=== PATIENT | female | born 1980 | race Caucasian/White ===

== ENCOUNTER 2016-12-27 19:01 | Emergency (ER) | payer OTHER ==
[~2016-12-27] VITALS: Ht 177.8 cm; Wt 100.0 kg
[~2016-12-27 19:01] MED LIST: ALEVE220 MG OR; FLEXERIL OR; LORTAB 5 OR; NAPROSYN500 MG OR; NO HOME MEDS; TORADOL OR; TRAMADOL HCL50 MG OR
[2016-12-27 19:46] LABS: HEMATOCRIT 31.6 % (37.0-47.0); HEMOGLOBIN 9.9 g/dl (12.0-16.0); IMMATURE GRANULOCYTES 0.8 % (0.0-1.0); MEAN CELL VOLUME 79.6 fL CALC (80.0-100.0); MEAN CORPUSCULAR HGB 24.9 pG CALC (26.0-32.0); MEAN CORPUSCULAR HGB CONC 31.3 g/L CALC (32.0-36.0); NEUT# 8.31 thou/uL (2.00-7.15); RED BLOOD COUNT 3.97 mill/uL (4.20-5.60); RED CELL DISTRI WIDTH 15.8 % (11.5-15.5)
[2016-12-27 19:49] LABS: URINE BILIRUBIN - DIPSTICK NEGATIVE (NEGATIVE); URINE BLOOD DIPSTICK NEGATIVE (NEGATIVE); URINE CLARITY CLEAR; URINE COLOR YELLOW; URINE GLUCOSE - DIPSTICK NEGATIVE (NEGATIVE); URINE KETONE NEGATIVE (NEGATIVE); URINE LEUK ESTERASE NEGATIVE (NEGATIVE); URINE NITRITE - DIPSTICK NEGATIVE (Negative); URINE PROTEIN - DIPSTICK NEGATIVE (NEG-TRACE); URINE SPECIFIC GRAVITY 1.025; URINE UROBILINOGEN - DIPSTICK 0.2 E.U./dL (0.2)
[2016-12-27 19:57] LABS: ALBUMIN 3.9 g/dL (3.2-5.0); ALKALINE PHOSPHATASE 91 u/l (38-126); AMYLASE 49 u/l (30-110); ANION GAP 17 (6-22 (CALC)); BILIRUBIN, TOTAL 0.4 mg/dL (0.0-1.4); BUN 21 mg/dL (7-17); BUN/CREATININE RATIO 28 (12-20 (CALC)); CALCIUM 9.5 mg/dL (8.4-10.2); CARBON DIOXIDE 24 mmol/l (22-30); CHLORIDE 103 mmol/l (95-108); CREATININE 0.8 mg/dL (0.5-1.0); GFR > 60 ML/MIN (>=60 (CALC)); GFR FOR AFR.AMER. > 60 ML/MIN (>=60 (CALC)); GLUCOSE 106 mg/dL (65-105); LIPASE 194 u/l (23-300); POTASSIUM 4.3 mmol/l (3.5-5.1); SGOT/AST 20 u/l (14-36); SGPT/ALT 28 u/l (9-52); SODIUM 139 mmol/l (137-146); TOTAL PROTEIN 6.9 g/dL (6.3-8.2)
[2016-12-27] MEDS ORDERED: CIPROFLOXACN500 MG PO (21:31)
[2016-12-27] MEDS ORDERED: ULTRAM50 M1 PO (21:31)
[2016-12-27 21:40] VITALS: BP 165/98
== END 2016-12-27 21:56 | disposition home or self-care (01) | DRG 392 ==
LOC: ED 19:01
PROVIDERS: Emergency Medicine
DX: R10.31 Right lower quadrant pain (principal); N83.201 Unspecified ovarian cyst, right side; R11.2 Nausea with vomiting, unspecified; R30.0 Dysuria; R35.0 Frequency of micturition

== ENCOUNTER 2017-08-23 16:55 | Emergency (ER) | payer OTHER ==
[~2017-08-23] VITALS: Ht 177.8 cm; Wt 109.1 kg
[~2017-08-23 16:55] MED LIST changes: +CIPROFLOXACN500 MG PO; +ULTRAM50 M1 PO
[2017-08-23 17:30] LABS: HEMATOCRIT 32.5 % (37.0-47.0); IMMATURE GRANULOCYTES 0.5 % (0.0-1.0); MEAN CORPUSCULAR HGB 22.8 pG CALC (26.0-32.0); MEAN CORPUSCULAR HGB CONC 30.8 g/L CALC (32.0-36.0); NEUT# 9.9 thou/uL (2.00-7.15); RED BLOOD COUNT 4.39 mill/uL (4.20-5.60); RED CELL DISTRI WIDTH 15.8 % (11.5-15.5)
[2017-08-23 17:47] LABS: ALKALINE PHOSPHATASE 87 u/l (38-126); ANION GAP 18 (6-22 (CALC)); BILIRUBIN, TOTAL 0.3 mg/dL (0.0-1.4); BUN 13 mg/dL (7-17); BUN/CREATININE RATIO 19 (12-20 (CALC)); CARBON DIOXIDE 21 mmol/l (22-30); CHLORIDE 105 mmol/l (95-108); CREATININE 0.7 mg/dL (0.5-1.0); GFR > 60 ML/MIN (>=60 (CALC)); GFR FOR AFR.AMER. > 60 ML/MIN (>=60 (CALC)); LIPASE 127 u/l (23-300); POTASSIUM 3.8 mmol/l (3.5-5.1); SGOT/AST 19 u/l (14-36); SGPT/ALT 41 u/l (9-52); SODIUM 141 mmol/l (137-146); TOTAL PROTEIN 7.6 g/dL (6.3-8.2)
[2017-08-23] MEDS ORDERED: IMODIUM2 MG PO (17:50)
[2017-08-23] MEDS ORDERED: ZOFRAN ODT4 MG PO (17:50)
[2017-08-23 18:30] VITALS: BP 161/95
== END 2017-08-23 18:41 | disposition home or self-care (01) | DRG 392 ==
LOC: ED 16:55
PROVIDERS: Emergency Medicine
DX: K52.9 Noninfective gastroenteritis and colitis, unspecified (principal); F17.210 Nicotine dependence, cigarettes, uncomplicated; R11.2 Nausea with vomiting, unspecified; R19.7 Diarrhea, unspecified

== ENCOUNTER 2017-12-10 18:22 | Emergency (ER) | payer OTHER ==
[~2017-12-10] VITALS: Ht 177.8 cm; Wt 109.4 kg
[~2017-12-10 18:22] MED LIST changes: +IMODIUM2 MG PO; +ZOFRAN ODT4 MG PO
[2017-12-10 18:48] LABS: URINE BLOOD DIPSTICK NEGATIVE (NEGATIVE); URINE COLOR ORANGE; URINE GLUCOSE - DIPSTICK 100 mg/dL (NEGATIVE); URINE KETONE TRACE mg/dL (NEGATIVE); URINE LEUK ESTERASE TRACE (NEGATIVE); URINE PH 5.5 (4.5-8.0); URINE PROTEIN - DIPSTICK >=300 mg/dL (NEG-TRACE); URINE SPECIFIC GRAVITY 1.025
[2017-12-10 18:51] LABS: URINE BILIRUBIN - DIPSTICK NEGATIVE (NEGATIVE); URINE CLARITY CLOUDY; URINE NITRITE - DIPSTICK POSITIVE (Negative)
[2017-12-10 18:54] LABS: URINE SQUAMOUS EPITHELIAL CELL MODERATE EPI/hpf (0-FEW)
[2017-12-10 18:55] LABS: URINE MUCUS FEW hpf (NONE-FEW)
[2017-12-10 18:56] LABS: URINE FINE GRAN CAST MANY lpf
[2017-12-10 19:02] VITALS: BP 147/84
[2017-12-10] MEDS ORDERED: CIPROFLOXACN500 MG PO (19:03)
== END 2017-12-10 19:05 | disposition home or self-care (01) ==
LOC: ED 18:22
PROVIDERS: Family Medicine
DX: N39.0 Urinary tract infection, site not specified (principal); F17.210 Nicotine dependence, cigarettes, uncomplicated; R30.0 Dysuria; R35.0 Frequency of micturition; R39.15 Urgency of urination

== ENCOUNTER 2020-09-10 03:09 | Inpatient (IN) | payer SELFPAY ==
[~2020-09-10] VITALS: Ht 180.3 cm; Wt 97.4 kg
--- NOTE | 2020-09-10 03:12 | NUR ---
AMBULATED TO ROOM WITH STEADY GAIT.
[2020-09-10 03:51] LABS: IMMATURE GRANULOCYTES 0.2 % (0.0-5.0); MEAN CORPUSCULAR HGB CONC 34.8 g/dL CAL (32.0-36.0); NEUT# 11.88 thou/uL (2.00-7.15); RED BLOOD COUNT 4.96 mill/uL (4.20-5.60); RED CELL DISTRI WIDTH 11.8 % (11.5-15.5)
[2020-09-10 03:52] LABS: HEMATOCRIT 42.8 % (37.0-47.0); HEMOGLOBIN 14.9 g/dl (12.0-16.0); MEAN CELL VOLUME 86.3 fL CALC (80.0-100.0)
--- NOTE | 2020-09-10 03:53 | NUR ---
URINE SAMPLE REQUESTED. PATIENT DID NOT ATTEMPT TO GO TO RESTROOM TO PROVIDE SAMPLE. OFFERE TO STRAIGHT Cath for urine collection. PATIENT DID NOT AGREE TO CATH FOR URINE COLLECTION. AWAITING SPECIMEN
[2020-09-10 04:03] LABS: ALKALINE PHOSPHATASE 82 u/l (38-126); AMYLASE 52 u/l (30-110); BILIRUBIN, TOTAL 0.3 mg/dL (0.0-1.4); BUN 17 mg/dL (7-17); BUN/CREATININE RATIO 19 (12-20 (CALC)); CHLORIDE 99 mmol/l (95-108); CREATININE 0.9 mg/dL (0.5-1.0); GFR > 60 ML/MIN (>=60 (CALC)); GFR FOR AFR.AMER. > 60 ML/MIN (>=60 (CALC)); LIPASE 117 u/l (23-300); POTASSIUM 3.6 mmol/l (3.5-5.1); SGOT/AST 23 u/l (14-36); SODIUM 136 mmol/l (137-146); TOTAL PROTEIN 7.2 g/dL (6.3-8.2)
[2020-09-10 04:06] LABS: ANION GAP 11 (6-22 (CALC)); CARBON DIOXIDE 30 mmol/l (22-30)
--- NOTE | 2020-09-10 04:17 | NUR ---
PATIENT RESTING QUIETLY AT THIS TIME. PATIENT PREVIOUSLY WITH LOUD MOANS AND VOCALIZATIONS
[2020-09-10 04:47] LABS: URINE BILIRUBIN - DIPSTICK NEGATIVE (NEGATIVE); URINE BLOOD DIPSTICK NEGATIVE (NEGATIVE); URINE COLOR YELLOW; URINE GLUCOSE - DIPSTICK NEGATIVE (NEGATIVE); URINE KETONE NEGATIVE (NEGATIVE); URINE LEUK ESTERASE NEGATIVE (NEGATIVE); URINE PH 8.5 (4.5-8.0); URINE PROTEIN - DIPSTICK 30 mg/dL (NEG-TRACE); URINE SPECIFIC GRAVITY 1.015; URINE UROBILINOGEN - DIPSTICK 0.2 E.U./dL (0.2)
[2020-09-10 04:48] LABS: URINE NITRITE - DIPSTICK NEGATIVE (Negative)
[2020-09-10 04:58] LABS: URINE BACTERIA FEW hpf; URINE SQUAMOUS EPITHELIAL CELL FEW EPI/hpf (0-FEW)
--- NOTE | 2020-09-10 06:51 | NUR ---
SBAR PRINTED TO FLOOR
--- NOTE | 2020-09-10 07:00 | NUR ---
RECIEVED REPRORT FROM [facility]
--- NOTE | 2020-09-10 07:58 | NUR ---
PT WAS VOMITING AND PRN ZOFRAN IV GIVEN FOR RELIEF.
--- NOTE | 2020-09-10 08:30 | NUR ---
GAVE REPORT TO MUKUND
[2020-09-10 08:35] VITALS: BP 197/117
--- NOTE | 2020-09-10 08:35 | NUR ---
PT TRANSPORTED TO MED SURG STABLE AND IN NO DISTRESS BY W/C. CARE ASSUMED TO MUKUND.
--- NOTE | 2020-09-10 08:35 | NUR ---
PATIENT ARRIVED ON FLOOR AT THIS TIME. PATIENT VITALS SIGNS TAKEN AT THIS TIME SEE INTERVENTION. PATIENT STATED HER ABDOMEN IS ACHING AND SHE HAS A PAIN OF 7 OUT OF THE PAIN SCALE 0-10. PATIENT HAS NOW EDEMA NOTED AND PATIENT IS ALERT AND ORIENTED X 3. PATIENT DENIES ANY MEDICAL HISTORY EXCEPT FOR A SURGICAL HISTORY OF A HYSTERCTOMY IN PAST YEARS. PATIENT DOES ADMIT THAT HE IS TRYING TO QUIT METH. PATIENTS LUNG MORALES ARE CLEAR AND BOWEL SOUNDS ARE PRESENT BUT ARE HYPOACTIVE IN ALL FOUR QUADS. SIDERAILS ARE UP X 2 CALL LIGHT IS WITHIN REACH.
--- NOTE | 2020-09-10 08:54 | NUR ---
PATIENT GIVEN 4MG OF MORPHINE IV AT THIS TIME FOR PAIN IN ABDOMEN. PATIENT STATES HER PAIN LEVEL IS A 7 AT THIS TIME. WILL CONTINUE TO MONITOR.
--- NOTE | 2020-09-10 09:30 | NUR ---
PATIENT STATES HER PAIN LEVEL IS A 4 AT THIS TIME. PATIENT ORDERED TO HAVE NG TUBE PLACED AT THIS TIME. UPON TRYING TO INSERT TUBE RESISTANCE MET AND TUBE WOULD NOT PASS THE NASAL AREA ON THE RIGHT SIDE. PATIENT DID EXPERIENCE SOME BLEEDING FROM RIGHT NARE AREA. NG TUBE PLACEMENT TRIED ON THE LEFT SIDE USING A #16 BUT TUBE AGAIN WOULD NOT PASS. PATIENT STATED SHE DOES NOT WANT THIS PLACED AT THIS TIME. SIDERAILS ARE UP CALL LIGHT NEAR.
--- NOTE | 2020-09-10 09:45 | NUR ---
DR. BARLOW CALLED REGARDING NG TUBE PLACEMENT NOT BEING SUCESSFUL AT THIS TIME DUE TO THE RESISTANCE OF NASAL NARES AND THE PATIENTS REFUSAL TO HAVING IT PLACED WHILE AWAKE. DR. BARLOW STATE OK TO HOLD OFF ON PLACING TUBE AT THIS TIME.
[2020-09-10 10:59] VITALS: BP 132/95
[2020-09-10 11:00] VITALS: BP 152/82
--- NOTE | 2020-09-10 11:28 | NUR ---
PATIENT GIVEN 30MG OF TORODOL FOR PAIN OF 8 OUT OF 0-10 IN ABDOMINAL AREA. WILL CONTINUE TO MONITOR. PATIENT DENIES ANY NAUSEA AND OR VOMITING AT THIS TIME.
--- NOTE | 2020-09-10 12:08 | NUR ---
DR. BARLOW IN TO SEE PATIENT AT THIS TIME. PATIENT PAIN REASSESSE AND STATED IT IS A 5 AT THIS TIME. WILL CONTINUE TO MONITOR.
[2020-09-10 14:26] VITALS: BP 194/93
--- NOTE | 2020-09-10 14:30 | NUR ---
DR. BARLOW NOTIFIED OF PATIENTS BLOOD PRESSURE OF 194/93. DR. BARLOW GAVE NO OTHER ORDERS AT THIS TIME. WILL CONTINUE TO MONITOR.
[2020-09-10 17:10] VITALS: BP 159/93
--- NOTE | 2020-09-10 19:55 | NUR ---
PT IN BED, APPEARS TO BE RESTING AT THIS TIME. PT DENIES FEELING DISTRESSED AT THIS TIME. INSTRUCTED TO CALL NEEDS ARISE, VERBALIZED UNDERSTANDING. CALL LIGHT W/IN REACH.
[2020-09-10 20:18] VITALS: BP 160/105
--- NOTE | 2020-09-11 01:00 | NUR ---
IVF REPLENISHED AT THIS TIME. PT C/O ROOM BEING TOO HOT, AIR TURNED DOWN FOR COMFORT. PT REPORTED THAT ABD FEELS "STILL A LITTLE CRAMPY." DENIES ANY OTHER NEEDS AT THIS TIME. CALL LIGHT AT SIDE AND PT ENCOURAGED TO CALL NEEDS ARISE.
--- NOTE | 2020-09-11 01:23 | NUR ---
IVPUMP SOUNDING, PT WAS SLEEPING, NO S/O DISTRESS NOTED.
[2020-09-11 04:15] VITALS: BP 139/71; BP 150/98
--- NOTE | 2020-09-11 04:35 | NUR ---
LAB IN WITH PT AT THIS TIME.
[2020-09-11 05:33] LABS: HEMATOCRIT 39.1 % (37.0-47.0); HEMOGLOBIN 13.4 g/dl (12.0-16.0); MEAN CELL VOLUME 89.5 fL CALC (80.0-100.0); MEAN CORPUSCULAR HGB 30.7 pG CALC (26.0-32.0); MEAN CORPUSCULAR HGB CONC 34.3 g/dL CAL (32.0-36.0); RED BLOOD COUNT 4.37 mill/uL (4.20-5.60); RED CELL DISTRI WIDTH 11.9 % (11.5-15.5)
[2020-09-11 05:51] LABS: ANION GAP 8 (6-22 (CALC)); BUN 12 mg/dL (7-17); BUN/CREATININE RATIO 15 (12-20 (CALC)); CARBON DIOXIDE 27 mmol/l (22-30); CHLORIDE 102 mmol/l (95-108); CREATININE 0.7 mg/dL (0.5-1.0); GFR > 60 ML/MIN (>=60 (CALC)); GFR FOR AFR.AMER. > 60 ML/MIN (>=60 (CALC)); SODIUM 134 mmol/l (137-146)
[2020-09-11 07:15] VITALS: BP 150/96
--- NOTE | 2020-09-11 07:15 | NUR ---
PATIENT LAYING IN BED AWAKE AT THIS TIME. PATIENT STATES HER PAIN IS A "1" OUT OF THE PAIN SCALE OF 0-10. PATIENT STATES "I FEEL BETTER TODAY" AND I HUNGRY". PATIENT STATES HER BOWELS HAVE NOT MOVED YET. PATIENT DOES HAVE ACTIVE BOWEL SOUNDS PRESENT IN ALL FOUR QUADRANTS AT THIS TIME. DIGITAL MEDIA SALES CONSULTANT DONE SEE INTERVENITONS. SIDERAILS ARE UP X 2 CALL LIGHT AND PERSONAL ITEMS ARE IN PLACE.
--- NOTE | 2020-09-11 11:47 | NUR ---
DR. BARLOW IN TO SEE PATIENT. DIET CHANGE TO CLEAR LIQUIDS AT THIS TIME. MARISABEL EBONY ANY NEEDS CURRENTLY AT THIS TIME. SIDERAILS ARE UP CALL LIGHT IS WITHIN REACH.
--- NOTE | 2020-09-11 13:01 | NUR ---
PATIENT COMPLAINING OF A HEADACHE AT THIS TIME AND REQUESTING PAIN MEDICATION. PATIENT GIVEN TORODOL 30MG AT THIS TIME. WILL CONTINUE TO MONITOR.
[2020-09-11 15:00] VITALS: BP 152/103
--- NOTE | 2020-09-11 16:01 | NUR ---
PATIENT LAYING IN BE AT THIS TIME. PATIENT STATES SHE FEELS BETTER AFTER TAKING HER SHOWER. PATIENT HAD LARGE BM AT THIS TIME. FORMED SOFT STOOL BROWN IN COLOR. SIDERAILS ARE UP CALL LIGHT WITHIN REACH.
--- NOTE | 2020-09-11 16:45 | NUR ---
DR. BAROLW NOTIFIED OF PATIENT HAVING BOWEL MOVEMENT AT THIS TIME. ORDERS GIVEN TO D/C IV AND SALINE JULIANNA AND TO GIVE PATIENT A REGULAR DIET AT THIS TIME.
--- NOTE | 2020-09-11 19:28 | NUR ---
PT IS TURNED ON SIDE WITH EYES CLOSED, APPEARS TO BE SLEEPING, BREATH SOUNDS REGULAR NON-LABORED. LIGHTS AND TV ARE OFF.
[2020-09-11 19:47] VITALS: BP 162/97
--- NOTE | 2020-09-11 20:40 | NUR ---
PT ASSESSMENT COMPLETED AT THIS TIME. PM MEDICATION ADMINISTERED FOR BP AND PT MEDICATED FOR REPORTED PAIN 6/10 ON PAIN SCALE. SHE REPORTS THAT THE TORODOL DID NOT WORK FOR HER SO SHE WAS MEDICATED WITH MORPHINE AT THIS TIME. ICE AND ICE WATER PROVIDED FOR COMFORT, DENIES ANY OTHER NEEDS AT THIS TIME. ACTIVE BOWEL SOUNDS WERE AUSCULTATED ALSO AT THIS TIME. CALL LIGHT AT SIDE AND PT ENCOURAGED TO CALL NEEDS ARISE.
--- NOTE | 2020-09-11 21:50 | NUR ---
PT APPEARS TO BE SLEEPING, NO S/O DISTRESS NOTED. RESP EVEN NON-LABORED.
[2020-09-11 22:00] VITALS: BP 148/84
--- NOTE | 2020-09-12 00:08 | NUR ---
PT IS AWAKE WITH LIGHTS OFF AND TV ON LOW. SHE IS READING ON HER PHONE. DENIES ANY NEEDS, BUT STATES SHE SLEPT WELL ALL EVENING, BUT NOW SHE CANNOT SLEEP. DENIES ANY FURTHER COMFORT MEASURE NEEDS.
--- NOTE | 2020-09-12 00:27 | NUR ---
PT CALLED FOR HER NURSE. WHEN I ARRIVE TO THE ROOM SHE ASKED IF SHE COULD GO DOWNSTAIRS FOR A CIGARETTE, I ADVISED HER THAT WE ARE A NO SMOKING CAMPUS AND SHE VERBALIZED UNDERSTANDING AND ASKED IF SHE COULD HAVE SOME ICECREAM/PROVIDED.
--- NOTE | 2020-09-12 03:57 | NUR ---
PT CALLED ASKING FOR PAIN MEDICATION, MEDICATED FOR PAIN 9/10 ON PAIN SCALE. REPORTEDLY PAIN IS IN THE MID ABD. ABD IS SOFT/TENDER TO PALPATION. NO VISUALIZED BULGES OR DISCOLORATION. I DISCUSSED DIET CHANGE WITH HER AND SHE VERBALIZED UNDERSTANDING OF MAYBE NEEDING TO GO BACK TO FULL LIQUID DIET, BUT THAT THE PHYSICIAN WOULD BE IN TO DISCUSS THIS WITH HER THIS MORNING. SHE ASKED ME TO REVIEW LABS AND SCANS W/HER, LABS DISCUSSED AND EDUCATION PROVIDED. DENIES ANY OTHER NEEDS AT THIS TIME.
[2020-09-12 04:00] VITALS: BP 166/101
[2020-09-12 07:20] VITALS: BP 156/82
--- NOTE | 2020-09-12 07:20 | NUR ---
PATIENT IN BED ALERT AND ORIENTED AT THIS TIME DENIES ANY PAIN. SLITTER AND CUTTER OPERATOR DONE SEE INTERVENTIONS. BOWEL SOUNDS HEARD THOUGHOUT AND ABDOMEN SOFT. SIDERAILS ARE UP X 2 CALL LIGHT AND PERSONAL ITEMS WITHIN REACH.
[2020-09-12 09:01] VITALS: BP 156/82
--- NOTE | 2020-09-12 12:00 | NUR ---
PATIENT RESTING IN BED AT THIS TIME. DR. BARLOW IN TO SEE PATIENT. PATIENT DENIES ANY NEEDS CURRENTLY SIDERAILS ARE UP CALL LIGHT IS REGINE LUJAN.
--- NOTE | 2020-09-12 12:20 | NUR ---
PATIENT D/C AT THIS TIME. IV REMOVED TIP INTACT. PATIENT VERBALIZE UNDERSTANDING OF D/C INSTRUCTIONS AT THIS TIME.
--- NOTE | 2020-09-12 12:42 | NUR ---
Discharge instructions given. Patient verbalizes understanding of same. Discharged in stable condition via Ambulatory to Home with family. All belongings sent with pt. PATIENT WANTED TO AMBULATE INSTEAD OF BEING WHEELCHAIR OUT.
== END 2020-09-12 12:41 | disposition home or self-care (01) | DRG 390 ==
LOC: ED 03:09 → MS2 06:53
PROVIDERS: Family Medicine; ADMIT Surgery; ATTEND Internal Medicine
DX: K56.50 Intestinal adhesions [bands], unspecified as to partial versus complete obstruction (principal); F17.210 Nicotine dependence, cigarettes, uncomplicated; Z20.822 Contact with and (suspected) exposure to COVID-19
CPT/HCPCS: Q9967

== ENCOUNTER 2022-06-28 01:44 | Emergency (ER) | payer SELFPAY ==
[~2022-06-28] VITALS: Ht 180.3 cm; Wt 86.0 kg
[2022-06-28] VITALS (14 sets, daily range): BP systolic 130–208; BP diastolic 85–120
[2022-06-28 02:31] LABS: BASO% 0.4 % (0-3); EOS% 1.3 % (0-8); HEMATOCRIT 42.2 % (37.0-47.0); HEMOGLOBIN 13.9 g/dl (12.0-16.0); IMMATURE GRANULOCYTES 0.8 % (0.0-5.0); LYMPH% 18.8 % (15-41); MEAN CELL VOLUME 89.6 fL CALC (80.0-100.0); MEAN CORPUSCULAR HGB 29.5 pG CALC (26.0-32.0); MEAN CORPUSCULAR HGB CONC 32.9 g/dL CAL (32.0-36.0); MONO% 6.6 % (2-13); NEUT# 7.66 thou/uL (2.00-7.15); NEUT% 72.1 % (42-76); RED BLOOD COUNT 4.71 mill/uL (4.20-5.60); RED CELL DISTRI WIDTH 12.2 % (11.5-15.5)
[2022-06-28 02:59] LABS: ALBUMIN 4.3 g/dL (3.2-5.0); ALKALINE PHOSPHATASE 92 u/l (38-126); ANION GAP 12 (6-22 (CALC)); BUN 16 mg/dL (7-17); BUN/CREATININE RATIO 16 (12-20 (CALC)); CARBON DIOXIDE 26 mmol/l (22-30); CHLORIDE 103 mmol/l (95-108); ETHYL ALCOHOL 0 mg/dl (0-30); GFR FOR AFR.AMER. > 60 ML/MIN (>=60 (CALC)); GFR OTHER RACES > 60 ML/MIN (>=60 (CALC)); POTASSIUM 3.4 mmol/l (3.5-5.1); SGOT/AST 34 u/l (14-36); SODIUM 138 mmol/l (137-146); TOTAL PROTEIN 7.8 g/dL (6.3-8.2)
[2022-06-28 03:00] LABS: BILIRUBIN, TOTAL 0.5 mg/dL (0.02-1.3)
[2022-06-28] MEDS ORDERED: ATACAND8 MG PO (05:24)
[2022-06-28] MEDS ORDERED: AMOX/K CLAV875 M1 PO (05:24)
== END 2022-06-28 05:47 | disposition home or self-care (01) | DRG 605 ==
LOC: ED 01:44
PROVIDERS: Emergency Medicine
PROC: 0HQ1XZZ Repair Face Skin, External Approach (ICD-10-PCS; principal; 2022-06-28)
DX: S01.81XA Laceration without foreign body of other part of head, initial encounter (principal); Y09 Assault by unspecified means; I16.0 Hypertensive urgency; J32.9 Chronic sinusitis, unspecified; S05.11XA Contusion of eyeball and orbital tissues, right eye, initial encounter